=== PATIENT | female | born 1955 | race Caucasian/White ===

== ENCOUNTER 2017-04-19 05:28 | Day surgery (SDC) | payer BC, OTHER ==
[~2017-04-19] VITALS: Ht 162.6 cm; Wt 55.3 kg
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
--- NOTE | ~2017-04-19 | O ---
[facility] [address] [place] [address] OPERATIVE REPORT Name: SEBASTIAN MAYNARD Room #: 150-1 [facility] M.R.#: [id number] Admission: 04/19/17 Attend Phys: Rashid Garsia MD Discharge: Date of : 55 Report #: [id number] THIS REPORT FOR: //name// CC: Rashid Zamoranoe [facility] DATE OF SERVICE: 04/19/2017 PREOPERATIVE DIAGNOSES: Deviated nasal septum, turbinate hypertrophy. POSTOPERATIVE DIAGNOSES: Deviated nasal septum, turbinate hypertrophy. PROCEDURE: Revision nasal septoplasty with nasal septal reconstruction, inferior turbinate submucous resection and outfracturing. SURGEON: Rashid Garsia MD ANESTHESIA: General LMA. INDICATIONS: See H and P. FINDINGS: Quadrangular cartilage had a bowing superiorly to the left side. There is a small deviation of the vomer to the left side, angulated, but not spurring. Left greater than right turbinate hypertrophy was noted. TECHNIQUE: After obtaining consent, she was brought to the operating suite, appropriate timeout was performed. General LMA anesthesia was obtained. The bed was turned 90 degrees. Nose was prepped and draped in usual sterile fashion. A 5 mL of 1% Xylocaine, 1:100,000 epinephrine injected on each side of the nasal septum. Later in the case, an additional 2 mL with the above local anesthetic was infiltrated submucosally in the inferior turbinate, care being made not to inject intravascularly. A right-sided hemitransfixion incision was made was. It was noted that patient had previous scarification, placing the cartilage of the septum slightly more superiorly. I did cut through the scar tissue on the left side to find a good plane against the remaining quadrangular cartilage. Once this plane was established, a mucosal flap was then tunneled with the use of a [place] elevator along the left side, pass the quadrangular cartilage into the vomer and perpendicular plate and down to the maxillary crest. Deviation as documented above was noted. Harvested a large portion of the quadrangular cartilage, leaving enough anteriorly for tip support. This bony cartilaginous junction was disarticulated and mucosal flap was then elevated off the quadrangular cartilage on the vomer and perpendicular plate on the right side as well. The above-mentioned cartilage was removed again, leaving enough for tip support. I then needed to back elevate on the right side and then with [facility] [address] [place] [address] OPERATIVE REPORT Name: SEBASTIAN MAYNARD Room #: 150-1 [facility] M.R.#: [id number] Admission: 04/19/17 Attend Phys: Rashid Garsia MD Discharge: Date of : 55 Report #: [id number] Josef-Robert forceps and Natasha forceps to remove the bony deviation as well. Upon completion, this reestablished the equality of the nasal airflow on each side. I then trimmed and morcellized the quadrangular cartilage that was removed and placed it back between the septal folds. A small incision was made on the left side for postoperative drainage purposes in the mucosal flap. Hemitransfixion incision was closed with simple interrupted 4-0 chromic suture. Each inferior turbinate was outfractured with the Salters elevator. The above local anesthetic was infiltrated. Left more than right submucous turbinate resection was performed with a 2.0 microdebrider blade to effect on the medial, medial inferior surfaces. With the Salters elevator, I outfractured each inferior turbinate. Simple splints designed and fashioned myself were placed in each side of the septum and secured with a 3-0 Prolene suture. A Merogel was placed on the left side between the septum and the inferior turbinate to prevent any synechia formation. The nasopharynx suctioned free of secretions, allowed to awaken from anesthesia, went to recovery room in stable condition. ESTIMATED BLOOD LOSS: Less than 20 mL. <ELECTRONICALLY SIGNED> By: Rashid Garsia MD 04/19/17 1058 0828 [id number] Rashid Garsia MD /kaylee
[~2017-04-19 05:28] MED LIST: ALIGN4 MG PO; ALPRAZOLAM 0.0.25 M1 PO; ANGELIQ 0.5 MG1 EACH PO; BIOTIN1 M1 PO; CALCIUM 500+D1 EAC2 PO; COMPOUNDED HORMONE SUBLING; DARVOCET-N 1001 EACH PO; FOLIC ACID; GLUCOSAMINE &1 EACH PO; MULTIVITAMINS1 EAC7 PO; NATURE-THROID65 MG PO; NIACIN50 MG PO; NORCO 5-325 TA1 EACH PO; OMEGA-31000 MG PO; POTASSIUM; PRISTIQ50 MG PO; SYNTHROID100 MCG PO; VITAMIN D1000 UNI1 PO; VITAMIN D31000 UNIT PO; VITAMIN E100 UNI1 PO; ZOLOFT100 MG PO
[2017-04-19 09:51] VITALS: BP 119/79
== END 2017-04-19 16:00 | disposition home or self-care (01) ==
LOC: TBA 05:28 → OR 05:28 → TBA 06:03 → OR 10:33
DX: J34.2 Deviated nasal septum (principal); J34.3 Hypertrophy of nasal turbinates; J45.909 Unspecified asthma, uncomplicated; E03.9 Hypothyroidism, unspecified; F32.89 Other specified depressive episodes; F41.8 Other specified anxiety disorders; Z86.19 Personal history of other infectious and parasitic diseases; Z85.828 Personal history of other malignant neoplasm of skin; Z79.899 Other long term (current) drug therapy; Z90.710 Acquired absence of both cervix and uterus; Z98.890 Other specified postprocedural states; Z79.82 Long term (current) use of aspirin
CPT/HCPCS: 50010; 50101; 50386; 50398; 51316; 51634; 53635; 56526; 56528; 62110; 62900; 70005